=== PATIENT | male | born 1970 | race Caucasian/White ===

== ENCOUNTER 2020-05-27 12:33 | Emergency (ER) | payer SELFPAY ==
[2020-05-27] MEDS ORDERED: ONDANSETRON 4 MG TAB.RAPDIS PO ONE ×2 (12:46→16:45)
--- NOTE | 2020-05-27 12:49 | ER Document Report ---
ED Medical Screen (RME) - General Chief Complaint: Nausea/Vomiting Stated Complaint: NAUSEA,VOMITING,HEADACHE Time Seen by Provider: 05/27/20 12:41 Mode of Arrival: Ambulatory Information source: Patient Notes: 50-year-old male presented to ED for complaint of blood pressure on Sunday. Sunday he started not feeling well and vomiting with nausea sick headache. He states by today he just does not feel like he can eat anything. He had a runny nose congestion. He states he cannot go to work because he works at [employer] and he does not feel good he states he is not had a fever. He does smoke 1/2 pack a day does not drink is on Suboxone. I have ordered blood urine influenza chest x-ray and covid test. The patient was evaluated during the global Covid 19 pandemic, and that diagnosis was suspected/considered upon their initial presentation. Their evaluation, treatment and testing was consistent with current guidelines for patients who present with complaints or symptoms that may be related to Covid 19. - Related Data Home Medications: Lisinopril Physical Exam - Vital signs Vitals: Temp Pulse Resp BP Pulse Ox 98.3 F 70 16 149/94 H 100 05/27/20 12:41 05/27/20 12:41 05/27/20 12:41 05/27/20 12:41 05/27/20 12:41 Course - Vital Signs Vital signs: Temp Pulse Resp BP Pulse Ox 98.3 F 70 16 149/94 H 100 05/27/20 12:41 05/27/20 12:41 05/27/20 12:41 05/27/20 12:41 05/27/20 12:41
--- NOTE | 2020-05-27 15:11 | ER Document Report ---
ED General - General Chief Complaint: Nausea/Vomiting Stated Complaint: NAUSEA,VOMITING,HEADACHE Time Seen by Provider: 05/27/20 12:41 Mode of Arrival: Ambulatory Notes: Patient is a 50-year-old white male who is a current half pack per day smoker with a reported past medical history only of kidney stone disease who presents the emergency department today with a chief complaint of feeling generally unwell. Patient states on Sunday he noticed his blood pressure was elevated. He states shortly after he began feeling somewhat nauseous. He states he went to bed that night awoke the next morning and was still nauseous. He states a headache gradually developed that day and refers to it as the type of headache h e gets when he is sick with a cold, not his typical "pounding headache". He states he went to work and the more he moved and was active the more nauseous he became. He vomited x2. States he went home from work as he could not continue and try to rest. He states despite this the nausea continues. He started thinking back to his elevated blood pressure in the presence of the nausea and headache and became concerned. He is a current everyday smoker. He does not have a primary doctor and denies any known past medical history with exception of the kidney stone disease. He does add that the man his family including his father have significant CAD. Reports his father had multi-bypass surgery and of a "massive heart attack." Patient admits to some fleeting intermittent chest pain to the left substernal region. States the pain occasionally radiates through to the left back. He states he is unsure however because he is had the similar symptoms with kidney stones in the past. He denies any abdominal discomfort but admits to tenderness from vomiting. Denies any diarrhea. No r ashes. No recent travel or known sick contacts. No fever, cough or shortness of breath. He is very concerned for potential COVID-19 exposure though has no suspicions. - Related Data Allergies/Adverse Reactions: No Known Allergies Allergy (Unverified 05/27/20 15:30) Home Medications: Lisinopril Past Medical History - General Information source: Patient - Social History Smoking Status: Current Every Day Smoker Family History: CAD Review of Systems - Review of Systems Constitutional: denies: Fever EENT: denies: Eye discharge Cardiovascular: Chest pain Respiratory: denies: Cough Gastrointestinal: denies: Abdominal pain Genitourinary: denies: Dysuria Male Genitourinary: denies: Testicular pain Musculoskeletal: denies: Muscle stiffness Skin: denies: Lesions Hematologic/Lymphatic: denies: Anemia Neurological/Psychological: denies: Seizure Physical Exam - Vital signs Vitals: Temp Pulse Resp BP Pulse Ox 98.3 F 70 16 149/94 H 100 05/27/20 12:41 05/27/20 12:41 05/27/20 12:41 05/27/20 12:41 05/27/20 12:41 - General General appearance: Appears well, Alert In distress: None - HEENT Head: Normocephalic, Atraumatic Eyes: Normal Conjunctiva: Normal Extraocular movements intact: Yes Eyelashes: Normal Pupils: PERRL Ears: Normal External canal: Normal Tympanic membrane: Normal Nasal: Normal Mouth/Lips: Normal Mucous membranes: Normal Pharynx: Normal Neck: Normal, Supple - Respiratory Respiratory status: No respiratory distress Chest status: Nontender Breath sounds: Normal Chest palpation: Normal - Cardiovascular Rhythm: Regular Heart sounds: Normal auscultation - Abdominal Inspection: Normal Distension: No distension Bowel sounds: Normal Tenderness: Tender - Slight tenderness to epigastric region Organomegaly: No organomegaly - Extremities General upper extremity: Normal inspection, Nontender, Normal color, Normal ROM, Normal temperature General lower extremity: Normal inspection, Nontender, Normal color, Normal ROM, Normal temperature, Normal weight bearing. No: Katie's sign - Neurological Neuro grossly intact: Yes Cognition: Normal Orientation: AAOx4 Tay Coma Scale Eye Opening: Spontaneous Tay Coma Scale Verbal: Oriented Tay Coma Scale Motor: Obeys Commands Tay Coma Scale Total: 15 Speech: Normal Cranial nerves: Normal Cerebellar coordination: Normal Motor strength normal: LUE, RUE, LLE, RLE Additional motor exam normals: Equal professor of management. No: Pronator drift, Weakness Sensory: Normal - Psychological Associated symptoms: Normal affect, Normal mood - Skin Skin Temperature: Warm Skin Moisture: Dry Skin Color: Normal Course - Re-evaluation Re-evalutation: 05/27/20 16:02 EKG: Sinus bradycardia at 54 bpm. Normal axis, normal intervals. Some early repolarization is detected. No STEMI. Interpreted by myself in conjunction with ED attending. 05/27/20 20:50 Repeat EKG sinus at 67 bpm. Normal axis. Normal intervals. No STEMI. Unchanged from prior today. Interpreted myself in conjunction with ED at [facility]. Chest x-ray negative for acute process. CTA of the chest negative for PE. Lab work largely unremarkable with a normal initial troponin, elevated d- dimer with subsequent CTA that was negative. Patient is pending a COVID-19 test. At this point he will be considered a patient under investigation for COVID-19. We discussed isolation measures and quarantine. Counseled him regarding the importance of outpatient follow-up and advised to return here or any ER immediately with any new, persistent or worsening symptoms. He verbalized understood and agreed. 05/27/20 21:41 Repeat troponin EKG negative. Patient stable and appropriate for discharge and outpatient follow-up. - Vital Signs Vital signs: Temp Pulse Resp BP Pulse Ox 98.2 F 65 18 131/70 H 99 05/27/20 21:37 05/27/20 21:37 05/27/20 21:37 05/27/20 21:37 05/27/20 21:37 - Laboratory Result Diagrams: 05/27/20 17:30 05/27/20 17:30 Laboratory results interpreted by me: 05/27/20 05/27/20 17:30 17:30 D-Dimer 1.20 H Potassium 5.1 H AST 66 H ALT 87 H Total Protein 8.3 H Discharge - Discharge Clinical Impression: Person under investigation for COVID-19 Condition: Stable Disposition: HOME, SELF-CARE Instructions: COVID-19 Guidance for Persons Under Investigation Additional Instructions: Please self quarantine and isolate in your home pending the results of your COVID-19 test. You are considered a patient under investigation for COVID-19. You will be contacted with your results. Please quarantine for at least 10 days or until you are 24 hours symptom-free. Please follow-up closely with your outpatient provider and return here or any ER immediately with any new, persistent or worsening symptoms. Forms: Return to Work Referrals: [facility] [NO LOCAL MD] - Follow up as needed
[2020-05-27 15:20] LABS: APPEARANCE,URINE SLIGHTLY-CLOUDY; BILIRUBIN,URINE NEGATIVE (NEGATIVE); COLOR,URINE YELLOW; GLUCOSE, URINE NEGATIVE (NEGATIVE); KETONES,URINE NEGATIVE (NEGATIVE); LEUKOCYTE ESTERASE,URINE NEGATIVE (NEGATIVE); NITRITE,URINE NEGATIVE (NEGATIVE); PROTEIN,URINE NEGATIVE (NEGATIVE); UROBILINOGEN,URINE NEGATIVE mg/dL (<2.0)
--- NOTE | 2020-05-27 15:48 | RADIOLOGY REPORT (SQ) ---
EXAM DESCRIPTION: CHEST SINGLE VIEW IMAGES COMPLETED DATE/TIME: 05/27/2020 3:34 pm REASON FOR STUDY: cough congestion COMPARISON: None. EXAM PARAMETERS: NUMBER OF VIEWS: One view. TECHNIQUE: Single frontal radiographic view of the chest acquired. RADIATION DOSE: NA LIMITATIONS: None. FINDINGS: LUNGS AND PLEURA: No opacities, masses or pneumothorax. No pleural effusion. MEDIASTINUM AND HILAR STRUCTURES: No masses. Contour normal. HEART AND VASCULAR STRUCTURES: Heart normal in size. Normal vasculature. BONES: No acute findings. HARDWARE: None in the chest. OTHER: No other significant finding. IMPRESSION: NO ACUTE RADIOGRAPHIC FINDING IN THE CHEST. TECHNICAL DOCUMENTATION: JOB ID: [id number] 2010 [employer]- All Rights Reserved Reading location - IP/workstation name: [email or web address]
[2020-05-27 16:00] LABS: A TYPE INFLUENZA AG NEGATIVE (NEGATIVE); B INFLUENZA AG NEGATIVE (NEGATIVE)
--- NOTE | 2020-05-27 16:54 | RADIOLOGY REPORT (SQ) ---
EXAM DESCRIPTION: CT HEAD WITHOUT IMAGES COMPLETED DATE/TIME: 05/27/2020 4:40 pm REASON FOR STUDY: HTN SHARIF COMPARISON: None. TECHNIQUE: Axial images acquired through the brain without intravenous contrast. Images reviewed wi th bone, brain and subdural windows. Additional sagittal and coronal reconstructions were generated. Images stored on PACS. All CT scanners at this facility use dose modulation, iterative reconstruction, and/or weight based d osing when appropriate to reduce radiation dose to as low as reasonably achievable (ALARA). [facility]: Dose Right [facility]: CareDose [facility]: Dose Right [facility]: Teradose 4D [facility]: Smart Hapzing RADIATION DOSE: CT Rad equipment meets quality standard of care and radiation dose reduction techniq ues were employed. CTDIvol: 53.2 mGy. DLP: 1177 mGy-cm. mGy. LIMITATIONS: None. FINDINGS: VENTRICLES: Normal size and contour. CEREBRUM: No masses. No hemorrhage. No midline shift. No evidence for acute infarction. Normal gra y/white matter differentiation. No areas of low density in the white matter. CEREBELLUM: No masses. No hemorrhage. No alteration of density. No evidence for acute infarction. EXTRAAXIAL SPACES: No fluid collections. No masses. ORBITS AND GLOBE: No intra- or extraconal masses. Normal contour of globe without masses. CALVARIUM: No fracture. PARANASAL SINUSES: No fluid or mucosal thickening. SOFT TISSUES: No mass or hematoma. OTHER: No other significant finding. IMPRESSION: NORMAL BRAIN CT WITHOUT CONTRAST. EVIDENCE OF ACUTE STROKE: NO. COMMENT: Quality ID # [id number]: Final reports with documentation of one or more dose reduction techniques (e.g., Automated exposure control, adjustment of the mA and/or kV according to patient size, use of iterative reconstruction technique) TECHNICAL DOCUMENTATION: JOB ID: [id number] 2010 [employer]- All Rights Reserved Reading location - IP/workstation name: [email or web address]
[2020-05-27] MEDS ORDERED: KETOROLAC TROMETHAMINE INJ/PF 30 MG/1 ML SDV IV ONE (17:00)
[2020-05-27 17:42] LABS: ABSOLUTE LYMPHOCYTES (AUTO) 2.3 10^3/uL (0.5-4.7); ABSOLUTE MONOCYTES (AUTO) 0.5 10^3/uL (0.1-1.4); ABSOLUTE NEUT (AUTO) 4.8 10^3/uL (1.7-8.2); BASOPHILS % (AUTO) 0.3 % (0-2); EOSINOPHILS % (AUTO) 0.2 % (0-6); HEMATOCRIT 43.6 % (37.9-51.0); HEMOGLOBIN 15.2 g/dL (13.5-17.0); LYMPHOCYTES % (AUTO) 30.4 % (13-45); MEAN CORPUSCULAR HEMOGLOBIN 32.7 pg (27.0-33.4); MEAN CORPUSCULAR HGB CONC 34.8 g/dL (32.0-36.0); MEAN CORPUSCULAR VOLUME 94 fl (80-97); MONOCYTES % (AUTO) 6.6 % (3-13); PLATELET COUNT 225 10^3/uL (150-450); RED BLOOD COUNT 4.65 10^6/uL (4.35-5.55); RED CELL DISTRIBUTION WIDTH 13.8 % (11.5-14.0); SEGMENTED NEUTROPHILS % (AUTO) 62.5 % (42-78); TOTAL CELLS COUNTED % (AUTO) 100 %; WHITE BLOOD COUNT 7.6 10^3/uL (4.0-10.5)
[2020-05-27 17:49] LABS: INTERNATIONAL RATION (INR) 1.05; PARTIAL THROMBOPLASTIN TIME 33.2 SEC (23.5-35.8); PROTHROMBIN TIME 13.9 SEC (11.4-15.4)
[2020-05-27 18:06] LABS: ALBUMIN 4.5 g/dL (3.5-5.0); ALKALINE PHOSPHATASE 79 U/L (38-126); ANION GAP 8 (5-19); ASPARTATE AMINO TRANSFERASE 66 U/L (17-59); BILIRUBIN,DIRECT 0.3 mg/dL (0.0-0.4); BILIRUBIN,TOTAL 0.7 mg/dL (0.2-1.3); BLOOD UREA NITROGEN 18 mg/dL (7-20); CALCIUM 9.8 mg/dL (8.4-10.2); CARBON DIOXIDE 27 mmol/L (22-30); CHLORIDE 106 mmol/L (98-107); GLUCOSE 102 mg/dL (75-110); POTASSIUM 5.1 mmol/L (3.6-5.0); TOTAL PROTEIN 8.3 g/dL (6.3-8.2)
[2020-05-27] MEDS ORDERED: NORMAL SALINE 1000 ML 1,000 ML IV ONE (18:43)
[2020-05-27] MEDS ORDERED: PROCHLORPERAZINE EDISYLATE INJ 10 MG/2 ML VIAL IV ONE (18:44)
[2020-05-27] MEDS ORDERED: DIPHENHYDRAMINE HCL 50 MG/ML VIAL IV ONE (18:44)
--- NOTE | 2020-05-27 19:24 | EKG REPORT ---
SEVERITY:- NORMAL ECG - SINUS RHYTHM ST ELEV, PROBABLE NORMAL EARLY REPOL PATTERN : Confirmed by: Paige Guerrero MD 27-May-2020 19:23:46
--- NOTE | 2020-05-27 20:39 | RADIOLOGY REPORT (SQ) ---
CT CHEST ANGIOGRAPHY WITHOUT THEN WITH IV CONTRAST HISTORY: Shortness of breath. COMPARISON: None. TECHNIQUE: CT angiogram of the chest with IV contrast. 3-D MIP images were obtained in coronal and sagittal reconstructions. This exam was performed according to our departmental dose-optimization program, which includes automated exposure control, adjustment of the mA and/or kV according to patient size and/or use of iterative reconstruction technique. FINDINGS: No filling defects are identified in the pulmonary trunk, main left and right pulmonary arteries, or the segmental branches. The thyroid gland is normal. Calcified mediastinal lymph nodes, sequela of old granulomatous disease. The heart size is normal without pericardial effusion. The thoracic aorta is normal caliber. No consolidation, pleural effusion, or pneumothorax is identified. The visualized upper abdomen demonstrates no acute findings. No acute osseous findings are seen. There are multiple old healed left-sided rib fractures. IMPRESSION: No acute pulmonary embolism.
[2020-05-27 21:37] VITALS: BP 131/70
--- NOTE | 2020-05-27 23:35 | EKG REPORT ---
SEVERITY:- NORMAL ECG - SINUS RHYTHM ST ELEV, PROBABLE NORMAL EARLY REPOL PATTERN : Confirmed by: Paige Guerrero MD 27-May-2020 23:34:18
== END 2020-05-27 21:59 | disposition home or self-care (01) ==
LOC: ER 12:33
DX: Z20.828 Contact with and (suspected) exposure to other viral communicable diseases (principal); R06.02 Shortness of breath; R11.2 Nausea with vomiting, unspecified; R07.2 Precordial pain; R10.816 Epigastric abdominal tenderness; R79.89 Other specified abnormal findings of blood chemistry; F17.200 Nicotine dependence, unspecified, uncomplicated; Z82.49 Family history of ischemic heart disease and other diseases of the circulatory system
CPT/HCPCS: 93005; 99285; 96361; 96374; 96375; 36415; 82550; 83690; 85025; 85610; 85730; 87635; 80053; 81001; 84484; 85379; 87804; 71045; 70450; 71275; 93010; J1200; S0119; J1885; J0780; J7030; C9803